=== PATIENT | female | born 1965 | race Caucasian/White ===

== ENCOUNTER → 2016-07-01 | Outpatient (CLI) | payer BC ==
[~2016-07-01] MED LIST: NO HOME MEDICATIONS; QUASENSE 30 MCG1 TAB PO
== END ==
LOC: MC.RAD 08:35
DX: Z12.31 Encounter for screening mammogram for malignant neoplasm of breast (principal)

== ENCOUNTER 2016-12-11 07:06 | Day surgery (SDC) | payer BC ==
[~2016-12-11] VITALS: Ht 165.1 cm; Wt 81.7 kg
[2016-12-11 07:50] VITALS: BP 126/88; PULSE 74; TEMP 97.1
[2016-12-11 08:25] VITALS: BP 97/56; PULSE 83
[2016-12-11 08:40] VITALS: BP 114/64; PULSE 66
[2016-12-11 08:55] VITALS: BP 118/76; PULSE 70
[2016-12-11 13:28] VITALS: BP 98/61; PULSE 54
== END 2016-12-11 09:05 | disposition home or self-care (01) ==
LOC: SDCO 07:06
DX: Z12.11 Encounter for screening for malignant neoplasm of colon (principal); Z83.71 Family history of colonic polyps
CPT/HCPCS: J2250; J2405; J3010

== ENCOUNTER → 2018-12-19 | Outpatient (CLI) | payer BC | LOC: MC.RAD 08:42 | DX: Z12.31 Encounter for screening mammogram for malignant neoplasm of breast (principal); N64.89 Other specified disorders of breast ==

== ENCOUNTER → 2018-12-23 | Outpatient (CLI) | payer BC | LOC: MC.RAD 08:30 | DX: Z01.419 Encounter for gynecological examination (general) (routine) without abnormal findings (principal); N63.10 Unspecified lump in the right breast, unspecified quadrant; N64.89 Other specified disorders of breast | CPT/HCPCS: G0279 ==

== ENCOUNTER → 2019-01-04 | Outpatient (CLI) | payer BC | LOC: MC.RAD 08:00 | DX: N63.12 Unspecified lump in the right breast, upper inner quadrant (principal); Z98.82 Breast implant status ==

== ENCOUNTER → 2020-10-28 | Outpatient (CLI) | payer BC | LOC: MC.RAD 10-21 11:15 | DX: Z12.31 Encounter for screening mammogram for malignant neoplasm of breast (principal) ==

== ENCOUNTER → 2023-04-08 | Outpatient (CLI) | payer BC | LOC: MC.RAD 09:22 | DX: Z12.31 Encounter for screening mammogram for malignant neoplasm of breast (principal); N63.11 Unspecified lump in the right breast, upper outer quadrant ==

== ENCOUNTER → 2023-04-16 | Outpatient (CLI) | payer BC | LOC: MC.RAD 09:00 | DX: R92.8 Other abnormal and inconclusive findings on diagnostic imaging of breast (principal) ==